=== PATIENT | male | born 1970 | race Caucasian/White ===

== ENCOUNTER 2025-07-10 10:39 | Emergency (ER) | payer BC, SELFPAY ==
[2025-07-10 10:50] VITALS: BP 162/63; PULSE 83; RESP 18; TEMP 37.1; O2SAT 97; BMI 24.0
--- NOTE | 2025-07-10 10:50 | DI.RAD.S_ITS ---
PROCEDURE: XR WRIST RT MIN 3V INDICATIONS: fall TECHNIQUE: 4 views of the wrist were acquired. COMPARISON: None. FINDINGS: Bones: Seen on the lateral view only is a small osseous fragment without obvious donor site. No other fracture is identified. No suspicious bony lesions. Soft tissues: Soft tissue edema is seen about the wrist. No suspicious soft tissue calcifications. IMPRESSION: Findings concerning for a dorsal avulsion fracture of triquetrum. Dictated by: Yuliya Vail M.D. on 07/10/2025 at 10:06 Approved by: Yuliya Vail M.D. on 07/10/2025 at 10:10
[2025-07-10 11:15] VITALS: PULSE 72
--- NOTE | 2025-07-10 11:23 | ED.UPPEXIN ---
HPI - Extremity Injury (Upper) General Chief Complaint: Extremity Injury, Upper Stated Complaint: Fell (2days) RT wrist injury; swollen Time Seen by Provider: 07/10/25 11:23 Source: patient Mode of arrival: Family Vehicle History of Present Illness HPI narrative: Patient is a 54-year-old male without any significant past medical history comes into the ED from home for evaluation of persistent right wrist pain, states earlier evening on Friday he was stepping out of his friend's RV and fell, states that he did not hit his head. Not on any blood thinners, he denies any other injuries at this time. Related Data Allergies Allergy/AdvReac Type Severity Reaction Status Date / Time hydrocodone (From Vicodin) AdvReac Nausea Verified 07/10/25 10:51 Review of Systems Review of Systems Narrative: General: Denies fever, chills, weight loss HEENT: Denies headache, eye drainage, eye irritation, head trauma, sore throat, voice change Cardiovascular: Denies any chest pain, palpitations, tachycardia Respiratory: Denies any shortness of breath, cough, wheeze, stridor GI/: Denies any abdominal pain, nausea, vomiting, diarrhea, bright red blood per rectum, melanotic stools, urinary frequency, urinary retention, dysuria, hematuria MSK: Positive right wrist pain Skin: Denies any rashes, lesions, discoloration Neuro: Denies any headache, lightheadedness, dizziness, fainting, weakness Psych: Denies SI/HI Patient History Social History Smoking Status: Current every day smoker Smoking Status: Current every day smoker tobacco type: cigarettes Exam Narrative Exam Narrative: General: Cooperative, well-developed, not in acute distress HEENT: Normocephalic, atraumatic, PERRLA, normal sclera, eyelids normal Neck: Active full range of motion, atraumatic Chest: Normal to inspection, negative crepitus, no overlying erythema ecchymosis Respiratory: Normal respiratory effort, not in acute respiratory distress, clear to auscultation bilaterally negative cough, wheeze, tachypnea, rhonchi, rales Cardiology: Regular rate rhythm negative gallop, murmur, rubs GI/: No tenderness to palpation, soft, non rigid, normal to inspection, exam deferred MSK: Patient neurovascularly intact to his right upper extremity however there is some tenderness to palpation of the right wrist, neurovascularly intact compartments soft Skin: No rashes or lesions noted Neuro: Alert awake oriented x3, moves all 4 extremities spontaneously, cranial nerves intact, able to answer all questions appropriately follows commands appropriately Psych: Cooperative, negative suicidal or homicidal ideations Initial Vital Signs Initial Vital Signs: Vital Signs Temperature 98.7 F 07/10/25 10:50 Pulse Rate 83 07/10/25 10:50 Respiratory Rate 18 07/10/25 10:50 Blood Pressure 162/63 H 07/10/25 10:50 Pulse Oximetry 97 07/10/25 10:50 Oxygen Delivery Method Room Air 07/10/25 10:50 Procedures Orthopedic Splinting/Casting Injury #1: Time of procedure: 11:52 Side: right Upper Extremity Injury Location: wrist Other Orthopedic Equipment: other (sling) Post splinting neuro exam: intact and no change Post splinting vascular exam: no change Placed by: Nursing Course Orders Ordered: ED Orders 07/10/25 10:50 XR wrist RT min 3V Stat 07/10/25 11:28 Consult to [facility] Stat Discontinued Medications Acetaminophen (Acetaminophen 325 Mg Tablet) 975 mg PO NOW ONE Stop: 07/10/25 11:20 Last Admin: 07/10/25 11:26 Dose: 975 mg Documented By: SILVIA Ibuprofen (Ibuprofen 400 Mg Tablet) 800 mg PO NOW ONE Stop: 07/10/25 11:20 Last Admin: 07/10/25 11:26 Dose: 800 mg Documented By: SILVIA Vital Signs Vital signs: Vital Signs - 8 hr 07/10/25 10:50 07/10/25 11:15 Temperature 98.7 F Pulse Rate 83 Pulse Rate [Left Radial] 72 Respiratory Rate 18 Blood Pressure 162/63 H Pulse Oximetry 97 Oxygen Delivery Method Room Air MDM - Extremity Injury (Upper) MDM Narrative Medical decision making narrative: 54-year-old male no pertinent past medical history comes into the ED from home for evaluation of right wrist pain, patient is right-handed, states that he stepped out of the friends RV landed 2 days ago onto his wrist denies head strike denies LOC not on any blood thinners, states that she has had persistent pain and swelling to the right hand/upper extremity therefore came into the ED. On exam mild edema but no pus green intact, compartments soft, some tenderness to palpation of the wrist, decreased active passive range of motion of the right wrist secondary to pain otherwise grossly normal. X-ray was performed does show dorsal avulsion fracture of the triquetrum, patient will be placed in a forearm volar splint and instructed to follow up with Orthopedic surgery and primary care in outpatient setting, he verbalized understanding of this and agrees to being discharged home with outpatient follow up Discharge Plan Departure Patient Disposition: Home Clinical Impression: Fracture of triquetrum of right wrist Instructions: How to Take Care of Your Splint Activity Restrictions/Additional Instructions: Please follow up with Orthopedic surgery You may use [id number] pain medication like Motrin or Tylenol to help with the pain, please use ice to help with any swelling pain, please elevate your arm when resting above your heart as much as possible. Please read the discharge instructions sheet carefully and bring all papers to all doctor follow-up visits, as it may contain information that your doctor may want to see. Disease processes change and evolve, if your symptoms worsen or if you develop any new symptoms that are concerning to you please return for evaluation. Your evaluation today does not show any evidence of any life-threatening/serious illnesses requiring admission to the hospital or surgery. Please follow-up with your doctor for re-evaluation in approximately 1 day. Seek immediate medical attention for any worrisome symptoms. *If you do not have a primary care provider please contact the [facility] Resource line at [phone]. They will ask some questions about your medical history and help get you set up with a doctor in the community. Stand Alone Forms: Patient Portal/API
[2025-07-10] MEDS: ACETAMINOPHEN 325 MG TABLET 975 MG PO (11:26)
[2025-07-10] MEDS: IBUPROFEN 400 MG TABLET 800 MG PO (11:26)
[2025-07-10 11:53] VITALS: BP 154/71; PULSE 72; RESP 16; O2SAT 99
== END 2025-07-10 11:55 | disposition home or self-care (01) ==
PROVIDERS: Emergency Provider Student in an Organized Health Care Education/Training Program
DX: S62.111A Displaced fracture of triquetrum [cuneiform] bone, right wrist, initial encounter for closed fracture (principal); W18.30XA Fall on same level, unspecified, initial encounter
CPT/HCPCS: 29125; 73110; 99283